=== PATIENT | female | born 1965 | race Caucasian/White ===

== ENCOUNTER → 2017-05-13 | Outpatient (CLI) | payer OTHER | LOC: FIMAGING 08:10 | PROVIDERS: ATTEND Nurse Practitioner | PROC: CP1Z1ZZ Planar Nuclear Medicine Imaging of Musculoskeletal System, All using Technetium 99m (Tc-99m) (ICD-10-PCS; principal; 2017-05-13) | DX: C79.51 Secondary malignant neoplasm of bone (principal) | CPT/HCPCS: 78306; A9503 ==

== ENCOUNTER → 2017-09-20 | Outpatient (CLI) | payer OTHER ==
[~2017-09-20] MED LIST: GADOBUTROL 10 ML VIAL IVP ONE
== END ==
LOC: FIMAGING 13:38
PROVIDERS: ATTEND Nurse Practitioner
DX: R51 Headache (principal); R94.02 Abnormal brain scan; Z85.3 Personal history of malignant neoplasm of breast
CPT/HCPCS: A9585

== ENCOUNTER → 2018-03-31 | Outpatient (CLI) | payer OTHER | LOC: FIMAGING 06:35 | PROVIDERS: ATTEND Internal Medicine Hematology & Oncology | DX: Z09 Encounter for follow-up examination after completed treatment for conditions other than malignant neoplasm (principal); R94.02 Abnormal brain scan; Z85.3 Personal history of malignant neoplasm of breast | CPT/HCPCS: A9585 ==

== ENCOUNTER → 2018-05-02 | Outpatient (CLI) | payer OTHER | LOC: FIMAGING 08:35 | PROVIDERS: ATTEND Internal Medicine Hematology & Oncology | DX: Z13.820 Encounter for screening for osteoporosis (principal); M85.89 Other specified disorders of bone density and structure, multiple sites; Z85.3 Personal history of malignant neoplasm of breast ==

== ENCOUNTER → 2018-05-04 | Outpatient (CLI) | payer OTHER | LOC: FIMAGING 08:08 | PROVIDERS: ATTEND Internal Medicine Hematology & Oncology | DX: C50.412 Malignant neoplasm of upper-outer quadrant of left female breast (principal) | CPT/HCPCS: 78306; A9503 ==